=== PATIENT | female | born 1995 | race Caucasian/White ===

== ENCOUNTER 2017-10-21 19:38 | Emergency (ER) | payer MEDICAID ==
[~2017-10-21] VITALS: Ht 160 cm; Wt 67.1 kg
[2017-10-21 20:04] VITALS: BP 110/71
== END 2017-10-22 02:15 | disposition left against medical advice (07) ==
LOC: ER 20:04
DX: Z53.21 Procedure and treatment not carried out due to patient leaving prior to being seen by health care provider (principal)

== ENCOUNTER 2023-12-17 22:30 | Emergency (ER) | payer MEDICAID ==
[~2023-12-17] VITALS: Ht 165.1 cm; Wt 72.7 kg
[2023-12-17 22:48] VITALS: BP 162/99; PULSE 89; RESP 18; TEMP 98; O2SAT 100
== END 2023-12-18 01:43 | disposition home or self-care (01) ==
LOC: ER 22:45
DX: H92.01 Otalgia, right ear (principal)
CPT/HCPCS: 99281